=== PATIENT | male | born 1975 | race Caucasian/White ===

== ENCOUNTER 2021-02-16 00:23 | Emergency (ER) | payer OTHER ==
[2021-02-16 01:00] LABS: BASOPHIL 0.3 % (0-2); EOSINOPHIL 1.7 % (0-5); HCT 50.7 % (42.0-52.0); HGB 16.6 g/dl (13.2-18.0); LYMPHOCYTE 23.4 % (15-48); MCH 29.4 pg (25.0-31.0); MCHC 32.7 g/dL (32.0-36.0); MCV 89.9 fL (78.0-100.0); MONOCYTE 7.4 % (0-12); MPV 9.7 fL (6.0-9.5); NEUTROPHIL 66.8 % (41-80); NRBC 0; PLT 301 K/uL (150-400); RBC 5.64 M/uL (4.70-6.00); RDW 16.3 % (11.5-14.0); WBC 14.5 K/uL (4.0-10.5)
[2021-02-16 01:17] LABS: INR 0.96 (0.9-1.2); PROTHROMBIN TIME 12.2 SECONDS (11.8-13.4); PTT 26.4 SECONDS (24.4-34.7)
[2021-02-16 01:25] LABS: ALBUMIN 3.8 g/dL (3.4-5.0); BILIRUBIN - TOTAL 0.2 mg/dL (0.2-1.0); BUN/CREAT RATIO (CALC) 18.2 RATIO; CREATININE 0.77 mg/dL (0.67-1.17); GLOBULIN (CALCULATION) 3.8 g/dL; POTASSIUM 3.8 mmol/L (3.5-5.1); TOTAL PROTEIN 7.6 g/dL (6.4-8.2)
== END 2021-02-16 03:50 | disposition home or self-care (01) ==
LOC: FER 00:23
PROVIDERS: Emergency Medicine
DX: R07.89 Other chest pain (principal); F17.210 Nicotine dependence, cigarettes, uncomplicated
CPT/HCPCS: 36415; 71045; 80053; 84484; 85025; 85379; 85610; 85730; J7030

== ENCOUNTER 2021-07-21 22:49 | Emergency (ER) | payer OTHER ==
[2021-07-21 23:54] LABS: BASOPHIL 0.3 % (0-2); HCT 43.3 % (42.0-52.0); HGB 14.9 g/dl (13.2-18.0); LYMPHOCYTE 9.7 % (15-48); MCH 31.4 pg (25.0-31.0); MCHC 34.4 g/dL (32.0-36.0); MCV 91.4 fL (78.0-100.0); MONOCYTE 9.7 % (0-12); MPV 10.1 fL (6.0-9.5); NRBC 0; PLT 269 K/uL (150-400); RBC 4.74 M/uL (4.70-6.00); RDW 13.2 % (11.5-14.0); WBC 14.9 K/uL (4.0-10.5)
[2021-07-22 00:34] LABS: ALBUMIN 3.9 g/dL (3.4-5.0); ALKALINE PHOSHATASE 67 U/L (46-116); ALT 664 U/L (16-63); AST >2000 U/L (15-37); BILIRUBIN - TOTAL 0.5 mg/dL (0.2-1.0); CHLORIDE 93 mmol/L (98-107); CO2 (BICARBONATE) 19 mmol/L (21-32); CREATININE 6.02 mg/dL (0.67-1.17); GLOBULIN (CALCULATION) 3.9 g/dL; GLUCOSE 94 mg/dL (74-106); POTASSIUM 4.5 mmol/L (3.5-5.1); TOTAL PROTEIN 7.8 g/dL (6.4-8.2)
[2021-07-22 00:44] LABS: BUN 115 mg/dL (7-18)
[2021-07-22 01:46] LABS: LACTIC ACID 0.7 mmol/L (0.4-1.9)
[2021-07-22 04:24] LABS: BILIRUBIN NEGATIVE (NEGATIVE); BLOOD 3+ Ery/uL (NEGATIVE); CLARITY CLEAR (CLEAR); COLOR YELLOW (YELLOW); GLUCOSE (U) NORMAL (NORMAL); LEUKOCYTES NEGATIVE Leu/uL (NEGATIVE); NITRITE NEGATIVE (NEGATIVE); PROTEIN 1+ mg/dL (NEGATIVE); SPECIFIC GRAVITY >=1.030 (1.001-1.030); UROBILINOGEN 0.2 mg/dL (0.2-1.0); pH 5.5 (5.0-9.0)
[2021-07-22 04:28] LABS: ECSTASY (MDMA) NEGATIVE (NEGATIVE); MARIJUANA (THC) NEGATIVE (NEGATIVE); METHADONE NEGATIVE (NEGATIVE); OPIATES NEGATIVE (NEGATIVE)
[2021-07-22 04:29] LABS: AMPHETAMINES POSITIVE (NEGATIVE); BARBITURATES NEGATIVE (NEGATIVE); OXYCODONE NEGATIVE (NEGATIVE)
[2021-07-22 04:42] LABS: BACTERIA TRACE; URINARY RBC RARE
[2021-07-22 05:12] LABS: HCT 36.9 % (42.0-52.0); HGB 12.4 g/dl (13.2-18.0); MCH 30.9 pg (25.0-31.0); MCHC 33.6 g/dL (32.0-36.0); MPV 10.2 fL (6.0-9.5); RBC 4.01 M/uL (4.70-6.00); RDW 13.2 % (11.5-14.0); WBC 11.9 K/uL (4.0-10.5)
[2021-07-22 05:34] LABS: ALBUMIN 2.8 g/dL (3.4-5.0); BILIRUBIN - TOTAL 0.5 mg/dL (0.2-1.0); CREATININE 6.03 mg/dL (0.67-1.17); GLOBULIN (CALCULATION) 3.1 g/dL; MAGNESIUM 3.4 mg/dL (1.8-2.4); PHOSPHORUS 9.1 mg/dL (2.6-4.7); POTASSIUM 4.2 mmol/L (3.5-5.1); TOTAL PROTEIN 5.9 g/dL (6.4-8.2)
== END 2021-07-22 10:53 | disposition left against medical advice (07) ==
LOC: FER 22:49
PROVIDERS: Emergency Medicine
DX: A41.9 Sepsis, unspecified organism (principal); R65.20 Severe sepsis without septic shock; N17.9 Acute kidney failure, unspecified; I21.4 Non-ST elevation (NSTEMI) myocardial infarction; M54.50 Low back pain, unspecified; F17.200 Nicotine dependence, unspecified, uncomplicated; Z53.29 Procedure and treatment not carried out because of patient's decision for other reasons
CPT/HCPCS: 36415; 71045; 80053; 80305; 81001; 82550; 83605; 83735; 83880; 84100; 84484; 85025; 85379; 85730; 86140; 87040; 93005; J1644; J1885; J2543; J3370; J7030; J7050

== ENCOUNTER 2021-07-22 11:21 | Emergency (ER) | payer OTHER ==
[2021-07-22 12:57] LABS: BASOPHIL 0.5 % (0-2); HCT 41.3 % (42.0-52.0); HGB 14.1 g/dl (13.2-18.0); LYMPHOCYTE 10.4 % (15-48); MCH 31.6 pg (25.0-31.0); MCHC 34.1 g/dL (32.0-36.0); MCV 92.6 fL (78.0-100.0); MONOCYTE 5.9 % (0-12); MPV 11.3 fL (6.0-9.5); NEUTROPHIL 80.7 % (41-80); NRBC 0; PLT 234 K/uL (150-400); RBC 4.46 M/uL (4.70-6.00); RDW 13.2 % (11.5-14.0); WBC 10.7 K/uL (4.0-10.5)
[2021-07-22 13:12] LABS: ALBUMIN 3.2 g/dL (3.4-5.0); BILIRUBIN - TOTAL 0.5 mg/dL (0.2-1.0); CREATININE 6.28 mg/dL (0.67-1.17); GLOBULIN (CALCULATION) 3.5 g/dL; TOTAL PROTEIN 6.7 g/dL (6.4-8.2)
== END 2021-07-22 17:13 | disposition left against medical advice (07) ==
LOC: FER 11:21
PROVIDERS: Internal Medicine
DX: N17.9 Acute kidney failure, unspecified (principal); M62.82 Rhabdomyolysis; F15.10 Other stimulant abuse, uncomplicated; F17.210 Nicotine dependence, cigarettes, uncomplicated; Z53.29 Procedure and treatment not carried out because of patient's decision for other reasons
CPT/HCPCS: 36415; 80053; 83880; 84484; 85025; 93005